=== PATIENT | male | born 2005 | race Hispanic/Latino ===

== ENCOUNTER 2025-09-27 19:17 | Emergency (ER) | payer SELFPAY ==
[2025-09-27] MEDS ORDERED: Bacitracin 1 PK ONE (20:44)
== END 2025-09-27 21:13 | disposition home or self-care (01) ==
LOC: ERS 19:17
DX: S91.311A Laceration without foreign body, right foot, initial encounter (principal); F17.200 Nicotine dependence, unspecified, uncomplicated; W26.0XXA Contact with knife, initial encounter
CPT/HCPCS: 99283